=== PATIENT | female | born 1995 | race Caucasian/White ===

== ENCOUNTER 2017-04-10 07:23 | Emergency (ER) | payer MEDICAID ==
[~2017-04-10] VITALS: Ht 172.7 cm; Wt 88.0 kg
[2017-04-10] MEDS ORDERED: IBUP800T54 PO (07:36)
[2017-04-10] MEDS ORDERED: BACL20TA PO (07:36)
[2017-04-10] MEDS ORDERED: ONDA8TAB9 PO (07:36)
[2017-04-10] MEDS ORDERED: CEFTRIAXONE 1 G in IV DEXTROSE 5% 50 ML IV ONE (07:45)
[2017-04-10] MEDS ORDERED: IV NORMAL SALINE 1000 ML BAG IV ONE (07:45)
[2017-04-10 08:04] LABS: BASOPHILS # (AUTO) 0.3 K/uL (0.0-8.0); BASOPHILS % (AUTO) 2.3 % (0.0-2.0); EOSINOPHILS % (AUTO) 0.1 % (0.0-7.0); HEMATOCRIT 35.3 % (37-47); HEMOGLOBIN 11.4 G/DL (12.0-16.0); LYMPHOCYTES # (AUTO) 1.1 K/UL (0.8-4.8); LYMPHOCYTES % (AUTO) 8.1 % (20.5-74.5); MEAN CORPUSCULAR HEMOGLOBIN 24.2 UUG (27.0-31.0); MEAN CORPUSCULAR HGB CONC 32 g/dL (32.0-37.0); MEAN CORPUSCULAR VOLUME 75.2 FL (81.0-99.0); MONOCYTES # (AUTO) 1.5 K/UL (0.1-1.30); MONOCYTES % (AUTO) 10.8 % (0-11); NEUTROPHILS # (AUTO) 10.8 K/UL (1.8-8.9); NEUTROPHILS % (AUTO) 78.7 % (31.5-64.5); PLATELET COUNT (AUTO) 270 K/UL (150-450); RED BLOOD CELL COUNT(AUTO) 4.69 MIL/UL (4.2-5.4); WHITE BLOOD COUNT (AUTO) 13.7 K/UL (4.0-11.2)
[2017-04-10 08:17] LABS: POTASSIUM 3.5 mmol/L (3.5-5.1)
[2017-04-10] MEDS ORDERED: CEFTRIAXONE 1 G VIAL ONE (08:32)
[2017-04-10 08:50] LABS: *BILIRUBIN,URIN NEGATIVE (NEGATIVE); *BLOOD, URINE 1+ (NEGATIVE); *CLARITY,URINE SLIGHTLY CLOUDY (CLEAR); *COLOR,URINE YELLOW (YELLOW); *KETONES,URINE 3+ (NEGATIVE); *PROTEIN,URINE 1+ (NEGATIVE); LEUKOCYTE ESTERASE ,URINE 2+ (NEGATIVE); NITRITE, URINE NEGATIVE (NEGATIVE); UGLUCOSE NEGATIVE (NEGATIVE)
[2017-04-10 09:04] LABS: BACTERIA,URINE MODERATE /HPF (NONE SEEN); SQUAMOUS EPITHELIAL CELL,UR FEW /HPF (NONE SEEN); WBC,URINE 20-50 /HPF (0-3)
[2017-04-10 09:08] LABS: *URINE HCG, QUAL NEGATIVE (NEGATIVE)
[2017-04-10] MEDS ORDERED: ACETAMINOPHEN ES 500 MG TABLET PO ONE (09:15)
--- NOTE | 2017-04-10 09:25 | NUR ---
Patient discharged to home in stable conditon. Written and verbal after care instructions given. Patient verbalizes understanding of instructions.pt says feels better, walks in steady gait. called for family member to come and worm picker the pt.
[2017-04-10 09:26] VITALS: BP 131/77
[2017-04-10] MEDS ORDERED: ACETAMINOPHEN ES 500 MG TABLET ONE (09:30)
== END 2017-04-10 09:28 | disposition home or self-care (01) ==
LOC: ER 07:23
DX: N12 Tubulo-interstitial nephritis, not specified as acute or chronic (principal); J45.909 Unspecified asthma, uncomplicated
CPT/HCPCS: 36415; 83605; 84703; 85025; 87040; 87086; A4663; J0696; J3490; J7030